=== PATIENT | female | born 1955 | race Caucasian/White ===

== ENCOUNTER 2016-10-24 19:38 | Inpatient (IN) | payer MEDICAID, OTHER ==
[~2016-10-24] VITALS: Ht 144.8 cm; Wt 51.3 kg
[~2016-10-24 19:38] MED LIST: LORA5SOL6 PO
[2016-10-24] MEDS ORDERED: KETOROLAC 30MG/ML VIAL IV NR (21:11)
[2016-10-24] MEDS ORDERED: SODIUM CHLORIDE 0.9% 1000ML BAG (SEPSIS BOLUS) IV NR (21:15)
[2016-10-24] MEDS ORDERED: LIDOCAINE HCL 1% 20ML VIAL (Pyxis) INJ INFIL NR (21:15)
[2016-10-24 21:42] LABS: CLARITY URINE CLEAR (CLEAR); COLOR URINE YELLOW (YELLOW); GLUCOSE URINE NEGATIVE (NEGATIVE); KETONES URINE NEGATIVE (NEGATIVE); LEUKOCYTE ESTERASE URINE 1+ (NEGATIVE); NITRITE URINE NEGATIVE (NEGATIVE); OCCULT BLOOD URINE NEGATIVE (NEGATIVE); PROTEIN URINE NEGATIVE (NEGATIVE); SPECIFIC GRAVITY URINE 1.018 (1.005-1.030); UROBILINOGEN URINE 0.2 E.U./dL (0.2-1.0)
[2016-10-24 22:05] LABS: BASOPHILS % 0.5 % (0.0-2.0); EOSINOPHILS % 0.3 % (0.0-5.0); HEMATOCRIT. 32.1 % (36.0-48.0); HEMOGLOBIN. 10.4 g/dL (12.0-16.0); LYMPHOCYTES % 10.4 % (20.0-50.0); MEAN CORPUSCULAR HEMOGLOBIN 26.3 pg (28.0-32.0); MEAN CORPUSCULAR VOLUME 81.2 fL (81.0-99.0); MEAN PLATELET VOLUME 8.7 fl (7.4-10.4); MONOCYTES % 3.5 % (2.0-8.0); NEUTROPHILS % 85.3 % (40.0-76.0); PLATELET 352 x1000/uL (130-400); RED BLOOD CELL COUNT 3.95 mill/uL (4.2-5.4); RED CELL DISTRIBUTION WIDTH 16.6 % (11.6-14.6)
[2016-10-24 22:09] LABS: INR 1.1; PROTHROMBIN TIME 11.1 sec (9.4-11.6)
[2016-10-24 22:14] LABS: CARBON DIOXIDE 20 mEq/L (21-32); CHLORIDE 108 mEq/L (98-107)
[2016-10-25] MEDS ORDERED: IPRATROPIUM/ALBUTEROL 0.5-3(2.5)MG/3ML NEB INH PRN (03:45)
[2016-10-25] MEDS ORDERED: GUAIFENESIN 200MG/10ML SUGAR FREE UDC PO PRN (03:45)
[2016-10-25] MEDS ORDERED: DEXTROSE 50% WATER 50ML SYRINGE IV PRN (03:45)
[2016-10-25] MEDS ORDERED: MAGNESIUM/ALUMINUM HYDROXIDE/SIMETHICONE 30ML UDC PO PRN (03:45)
[2016-10-25] MEDS ORDERED: DIPHENHYDRAMINE 50MG/ML VIAL IV PRN (03:45)
[2016-10-25] MEDS ORDERED: LORAZEPAM 2MG/ML CPJ IV PRN (03:45)
[2016-10-25] MEDS ORDERED: ONDANSETRON HCL 4MG/2ML VIAL IV PRN (03:45)
[2016-10-25] MEDS ORDERED: LEVOFLOXACIN 500MG PREMIX 100 ML IV SCH (04:29)
[2016-10-25] MEDS ORDERED: CEFTRIAXONE 1 G PREMIX 50 ML IV SCH (04:29)
[2016-10-25] MEDS: SODIUM CHLORIDE 0.9% 1,000 ML IV SCH ×3 (04:54→23:38)
[2016-10-25] MEDS ORDERED: GENTAMICIN 80MG PREMIX 100 ML IV SCH (08:00)
[2016-10-25] MEDS ORDERED: INSULIN LISPRO 100 UNITS/ML SUBCUT SCH (08:20)
[2016-10-25] MEDS: BLOOD SUGAR DIAGNOSTIC STRIP TEST SCH ×4 (08:29→21:36)
[2016-10-25] MEDS: ACETAMINOPHEN 325MG TABLET PO PRN ×3 (09:46→21:52)
[2016-10-25 09:49] VITALS: BP 132/70
[2016-10-25 12:33] VITALS: BP 132/70
[2016-10-25] MEDS ORDERED: GENTAMICIN 120MG PREMIX 100 ML IV NR (14:00)
[2016-10-25 16:20] VITALS: BP 126/51
[2016-10-25] MEDS: INSULIN LISPRO 100 UNITS/ML SUBCUT SCH ×2 (17:47→21:00)
[2016-10-25 20:00] VITALS: BP 119/56
[2016-10-25 23:57] VITALS: BP 104/60
[2016-10-26] MEDS: GENTAMICIN 80MG PREMIX 100 ML IV SCH ×2 (03:11→13:02)
[2016-10-26] MEDS: ACETAMINOPHEN 325MG TABLET PO PRN ×4 (05:14→17:06)
[2016-10-26 05:24] VITALS: BP 139/82
[2016-10-26] MEDS: CEFTRIAXONE 1 G PREMIX 50 ML IV SCH (06:16)
[2016-10-26] MEDS: SODIUM CHLORIDE 0.9% 1,000 ML IV SCH ×3 (06:16→18:32)
[2016-10-26] MEDS: BLOOD SUGAR DIAGNOSTIC STRIP TEST SCH ×4 (06:18→21:13)
[2016-10-26] MEDS: INSULIN LISPRO 100 UNITS/ML SUBCUT SCH ×4 (07:50→21:00)
[2016-10-26 08:00] VITALS: BP 136/61
[2016-10-26 11:35] VITALS: BP 100/55
[2016-10-26 15:27] VITALS: BP 111/66
[2016-10-26 20:27] VITALS: BP 128/83
[2016-10-27 00:27] VITALS: BP 135/84
[2016-10-27] MEDS: GENTAMICIN 80MG PREMIX 100 ML IV SCH (02:40)
[2016-10-27 04:25] LABS: CARBON DIOXIDE 23 mEq/L (21-32); CHLORIDE 115 mEq/L (98-107)
[2016-10-27 04:36] VITALS: BP 129/82
[2016-10-27] MEDS: ACETAMINOPHEN 325MG TABLET PO PRN (05:11)
[2016-10-27] MEDS: CEFTRIAXONE 1 G PREMIX 50 ML IV SCH (05:11)
[2016-10-27] MEDS: SODIUM CHLORIDE 0.9% 1,000 ML IV SCH (05:11)
[2016-10-27] MEDS: BLOOD SUGAR DIAGNOSTIC STRIP TEST SCH ×2 (06:06→12:33)
[2016-10-27 07:45] VITALS: BP 104/70
[2016-10-27] MEDS: INSULIN LISPRO 100 UNITS/ML SUBCUT SCH ×2 (07:50→12:34)
[2016-10-27] MEDS ORDERED: POTASSIUM CHLORIDE 20MEQ TABLET SR PO SCH (10:45)
[2016-10-27 11:02] VITALS: BP 104/70
== END 2016-10-27 13:00 | disposition home or self-care (01) | DRG 720 ==
LOC: ER 19:38 → 6WST 10-25 00:38 → EDBEDREQ 10-25 00:43 → EDBEDREQSVC 10-25 07:15 → ENRESERV 10-25 07:22
PROVIDERS: ADMIT Internal Medicine; ATTEND Internal Medicine
DX: A41.9 Sepsis, unspecified organism (principal); E43 Unspecified severe protein-calorie malnutrition; N10 Acute pyelonephritis; N39.0 Urinary tract infection, site not specified; E11.9 Type 2 diabetes mellitus without complications; E86.0 Dehydration; K44.9 Diaphragmatic hernia without obstruction or gangrene; K57.90 Diverticulosis of intestine, part unspecified, without perforation or abscess without bleeding; Z72.0 Tobacco use; Z83.3 Family history of diabetes mellitus; Z86.718 Personal history of other venous thrombosis and embolism; Z86.73 Personal history of transient ischemic attack (TIA), and cerebral infarction without residual deficits; Z79.899 Other long term (current) drug therapy; E83.51 Hypocalcemia
CPT/HCPCS: 20610; 36415; 71010; 73562; 74176; 80048; 80053; 80170; 81001; 82962; 83605; 85025; 85610; 87040; 87086; 93005; 96361; 96365; 96375; 97162; 97166; 99285; J0696; J1580; J1885; J1956; J3490; J7030; J7040

== ENCOUNTER 2020-06-24 18:39 | Inpatient (IN) | payer MEDICAID ==
[~2020-06-24] VITALS: Ht 152.4 cm; Wt 64.0 kg
[2020-06-24 22:12] LABS: BASOPHILS % 0.3 % (0.0-2.0); EOSINOPHILS % 4.3 % (0.0-5.0); HEMOGLOBIN. 11.7 g/dL (12.0-16.0); LYMPHOCYTES % 43.6 % (20.0-50.0); MEAN CORPUSCULAR HEMOGLOBIN 27.2 pg (28.0-32.0); MEAN CORPUSCULAR VOLUME 83.4 fL (81.0-99.0); MEAN PLATELET VOLUME 8.5 fl (7.4-10.4); MONOCYTES % 7.6 % (2.0-8.0); NEUTROPHILS % 44.2 % (40.0-76.0); PLATELET 477 x1000/uL (130-400); RED BLOOD CELL COUNT 4.32 mill/uL (4.2-5.4); RED CELL DISTRIBUTION WIDTH 17.2 % (11.6-14.6)
[2020-06-24 22:16] LABS: CHLORIDE 105 mEq/L (98-107)
[2020-06-24 22:20] LABS: ETHANOL BLOOD < 10 mg/dL
[2020-06-24] MEDS ORDERED: SODIUM CHLORIDE 0.9% 1,000 ML IV ONE (22:45)
[2020-06-24 23:09] LABS: CLARITY URINE CLEAR (CLEAR); COLOR URINE YELLOW (YELLOW); KETONES URINE NEGATIVE (NEGATIVE); LEUKOCYTE ESTERASE URINE 2+ (NEGATIVE); NITRITE URINE NEGATIVE (NEGATIVE); OCCULT BLOOD URINE NEGATIVE (NEGATIVE); PROTEIN URINE NEGATIVE (NEGATIVE); SPECIFIC GRAVITY URINE 1.016 (1.005-1.030)
[2020-06-24 23:28] LABS: *AMPHETAMINES SCREEN URINE NEGATIVE (NEGATIVE); *BARBITURATES SCREEN URINE NEGATIVE (NEGATIVE); *BENZODIAZEPINES SCREEN URINE NEGATIVE (NEGATIVE); *COCAINE SCREEN URINE NEGATIVE (NEGATIVE); METHADONE URINE SCREEN NEGATIVE (NEGATIVE); OPIATES URINE SCREEN NEGATIVE (NEGATIVE); PHENCYCLIDINE URINE SCREEN NEGATIVE (NEGATIVE)
[2020-06-24 23:29] LABS: CANNABINOID URINE SCREEN NEGATIVE (NEGATIVE)
[2020-06-24] MEDS ORDERED: CEFTRIAXONE 1 G PREMIX 50 ML IV ONE (23:30)
[2020-06-25] MEDS ORDERED: SODIUM CHLORIDE 0.9% 1,000 ML IV ONE
[2020-06-25 04:23] VITALS: BP 118/63
[2020-06-25 04:40] VITALS: BP 118/63
[2020-06-25] MEDS ORDERED: IOHEXOL-300 100 ML BOTTLE ONE (05:39)
[2020-06-25] MEDS ORDERED: ACETAMINOPHEN 325MG TABLET PO PRN ×2 (06:00)
[2020-06-25] MEDS ORDERED: IPRATROPIUM/ALBUTEROL 0.5-3(2.5)MG/3ML NEB HHN PRN (06:00)
[2020-06-25] MEDS ORDERED: ONDANSETRON HCL 4MG/2ML INJ IV PRN (06:00)
[2020-06-25] MEDS ORDERED: MORPHINE SULFATE 2 MG/ML CPJ (NOT FOR IM USE) IV PRN (06:00)
[2020-06-25] MEDS ORDERED: CLONIDINE 0.1MG TABLET PO PRN (06:00)
[2020-06-25] MEDS ORDERED: MAGNESIUM/ALUMINUM HYDROXIDE/SIMETHICONE 30ML UDC PO PRN (06:00)
[2020-06-25] MEDS ORDERED: HYDROCODONE/ACETAMINOPHEN 5/325MG TABLET PO PRN (06:00)
[2020-06-25] MEDS: SODIUM CHLORIDE 0.9% 1,000 ML IV SCH ×2 (06:00→17:38)
[2020-06-25] MEDS ORDERED: LORAZEPAM 0.5MG TABLET PO PRN (06:00)
[2020-06-25] MEDS ORDERED: DOCUSATE SODIUM 100MG CAPSULE PO PRN (06:00)
[2020-06-25] MEDS ORDERED: GUAIFENESIN 200MG/10ML SUGAR FREE UDC PO PRN (06:00)
[2020-06-25] MEDS ORDERED: DIPHENHYDRAMINE 50MG/ML VIAL IV PRN (06:00)
[2020-06-25] MEDS ORDERED: MVI, ADULT NO.1 10 ML, FOLIC ACID 1 MG, THIAMINE HCL 100 MG in SODIUM CHLORIDE 0.9% 1,0... IV SCH (06:00)
[2020-06-25] MEDS ORDERED: DEXTROSE 50% WATER 50ML SYRINGE IV PRN (06:30)
[2020-06-25] MEDS ORDERED: BLOOD SUGAR DIAGNOSTIC STRIP TEST SCH (07:20)
[2020-06-25] MEDS ORDERED: INSULIN LISPRO 100 UNITS/ML SUBCUT SCH (07:50)
[2020-06-25 08:00] VITALS: BP 105/50
[2020-06-25] MEDS: ENOXAPARIN 40MG/0.4ML SYR SUBCUT SCH (08:42)
[2020-06-25] MEDS: BLOOD SUGAR DIAGNOSTIC STRIP TEST SCH ×2 (08:43→17:28)
[2020-06-25] MEDS: CEPHALEXIN 250MG CAPSULE PO SCH ×3 (08:43→17:39)
[2020-06-25 11:07] LABS: BASOPHILS % 0.8 % (0.0-2.0); EOSINOPHILS % 4.7 % (0.0-5.0); HEMATOCRIT. 31.8 % (36.0-48.0); HEMOGLOBIN. 10.4 g/dL (12.0-16.0); LYMPHOCYTES % 44.5 % (20.0-50.0); MEAN CORPUSCULAR HEMOGLOBIN 27.1 pg (28.0-32.0); MEAN CORPUSCULAR VOLUME 82.7 fL (81.0-99.0); MEAN PLATELET VOLUME 8.5 fl (7.4-10.4); MONOCYTES % 8.2 % (2.0-8.0); NEUTROPHILS % 41.8 % (40.0-76.0); PLATELET 432 x1000/uL (130-400); RED BLOOD CELL COUNT 3.84 mill/uL (4.2-5.4); RED CELL DISTRIBUTION WIDTH 16.7 % (11.6-14.6)
[2020-06-25 11:23] LABS: CHLORIDE 113 mEq/L (98-107)
[2020-06-25 11:33] LABS: LDL CHOLESTEROL 122 mg/dL (5-100)
[2020-06-25 11:34] LABS: HDL CHOLESTEROL 24 mg/dL (40-59)
[2020-06-25 12:00] VITALS: BP 116/59
[2020-06-25 16:00] VITALS: BP 108/62
[2020-06-25 20:00] VITALS: BP 129/69
[2020-06-26] VITALS: BP 104/18
[2020-06-26] MEDS: SODIUM CHLORIDE 0.9% 1,000 ML IV SCH ×3 (02:00→22:00)
[2020-06-26 04:00] VITALS: BP 110/65
[2020-06-26 08:00] VITALS: BP 84/18
[2020-06-26 08:58] LABS: BASOPHILS % 0.7 % (0.0-2.0); EOSINOPHILS % 4.5 % (0.0-5.0); HEMATOCRIT. 28.8 % (36.0-48.0); HEMOGLOBIN. 9.5 g/dL (12.0-16.0); LYMPHOCYTES % 41.1 % (20.0-50.0); MEAN CORPUSCULAR HEMOGLOBIN 27.4 pg (28.0-32.0); MEAN CORPUSCULAR VOLUME 83.3 fL (81.0-99.0); MEAN PLATELET VOLUME 8.7 fl (7.4-10.4); MONOCYTES % 9.4 % (2.0-8.0); NEUTROPHILS % 44.3 % (40.0-76.0); PLATELET 345 x1000/uL (130-400); RED BLOOD CELL COUNT 3.46 mill/uL (4.2-5.4); RED CELL DISTRIBUTION WIDTH 16.9 % (11.6-14.6)
[2020-06-26 08:59] LABS: CHLORIDE 111 mEq/L (98-107)
[2020-06-26] MEDS: BLOOD SUGAR DIAGNOSTIC STRIP TEST SCH ×2 (09:00→17:00)
[2020-06-26] MEDS: CEPHALEXIN 250MG CAPSULE PO SCH ×3 (10:11→18:36)
[2020-06-26] MEDS: ENOXAPARIN 40MG/0.4ML SYR SUBCUT SCH (10:14)
[2020-06-26] MEDS ORDERED: GADOTERATE MEGLUMINE 5 MMOL/10 ML VIAL IV ONE (11:29)
[2020-06-26 12:00] VITALS: BP 116/65
[2020-06-26 16:00] VITALS: BP 110/75
[2020-06-26 20:00] VITALS: BP 103/53
[2020-06-27] VITALS: BP 132/72
[2020-06-27 04:00] VITALS: BP 104/56
[2020-06-27 07:19] LABS: BASOPHILS % 0.6 % (0.0-2.0); EOSINOPHILS % 5.8 % (0.0-5.0); HEMATOCRIT. 31.4 % (36.0-48.0); HEMOGLOBIN. 10.5 g/dL (12.0-16.0); LYMPHOCYTES % 39.1 % (20.0-50.0); MEAN CORPUSCULAR VOLUME 84.2 fL (81.0-99.0); MEAN PLATELET VOLUME 8.5 fl (7.4-10.4); MONOCYTES % 9.4 % (2.0-8.0); NEUTROPHILS % 45.1 % (40.0-76.0); PLATELET 362 x1000/uL (130-400); RED BLOOD CELL COUNT 3.74 mill/uL (4.2-5.4); RED CELL DISTRIBUTION WIDTH 16.5 % (11.6-14.6)
[2020-06-27 07:30] LABS: CHLORIDE 109 mEq/L (98-107)
[2020-06-27] MEDS: CEPHALEXIN 250MG CAPSULE PO SCH ×3 (08:19→17:18)
[2020-06-27] MEDS: ENOXAPARIN 40MG/0.4ML SYR SUBCUT SCH (08:20)
[2020-06-27 08:46] VITALS: BP 92/44
[2020-06-27] MEDS: SODIUM CHLORIDE 0.9% 1,000 ML IV SCH ×3 (11:16→23:10)
[2020-06-27 12:30] VITALS: BP 102/65
[2020-06-27 16:00] VITALS: BP 100/59
[2020-06-27] MEDS ORDERED: BLOOD SUGAR DIAGNOSTIC STRIP TEST SCH (18:00)
[2020-06-27 20:00] VITALS: BP 98/50
[2020-06-27] MEDS ORDERED: ATORVASTATIN CALCIUM 40MG TABLET PO SCH (21:00)
[2020-06-28] VITALS: BP 111/59
[2020-06-28 04:00] VITALS: BP 110/72
[2020-06-28 07:49] LABS: BASOPHILS % 0.9 % (0.0-2.0); EOSINOPHILS % 5.9 % (0.0-5.0); HEMATOCRIT. 30.5 % (36.0-48.0); HEMOGLOBIN. 9.9 g/dL (12.0-16.0); LYMPHOCYTES % 39.9 % (20.0-50.0); MEAN CORPUSCULAR HEMOGLOBIN 27.4 pg (28.0-32.0); MEAN PLATELET VOLUME 8.4 fl (7.4-10.4); MONOCYTES % 9.5 % (2.0-8.0); NEUTROPHILS % 43.8 % (40.0-76.0); PLATELET 392 x1000/uL (130-400); RED BLOOD CELL COUNT 3.63 mill/uL (4.2-5.4); RED CELL DISTRIBUTION WIDTH 17.1 % (11.6-14.6)
[2020-06-28 07:58] LABS: CHLORIDE 111 mEq/L (98-107)
[2020-06-28] MEDS: CEPHALEXIN 250MG CAPSULE PO SCH ×2 (08:15→12:18)
[2020-06-28] MEDS: ENOXAPARIN 40MG/0.4ML SYR SUBCUT SCH (08:16)
[2020-06-28 08:17] VITALS: BP 95/61
[2020-06-28] MEDS ORDERED: MECL-159 MT (11:10)
[2020-06-28] MEDS ORDERED: POTASSIUM CHLORIDE 20MEQ TABLET SR PO NR (11:30)
[2020-06-28 12:10] VITALS: BP 105/48
[2020-06-28] MEDS: SODIUM CHLORIDE 0.9% 1,000 ML IV SCH (14:00)
[2020-06-28 16:00] VITALS: BP 112/62
== END 2020-06-28 16:57 | disposition home health service (06) | DRG 58 ==
LOC: ER 18:39 → 6WST 23:36 → EDBEDREQ 23:41 → EDBEDREQTM 23:41 → ENRESERV 06-25 02:21
PROVIDERS: ADMIT Family Medicine Adult Medicine; ATTEND Family Medicine Adult Medicine
DX: G93.0 Cerebral cysts (principal); I95.9 Hypotension, unspecified; E23.6 Other disorders of pituitary gland; I42.9 Cardiomyopathy, unspecified; I11.0 Hypertensive heart disease with heart failure; I50.9 Heart failure, unspecified; D64.9 Anemia, unspecified; E11.9 Type 2 diabetes mellitus without complications; E86.0 Dehydration; K80.20 Calculus of gallbladder without cholecystitis without obstruction; E78.00 Pure hypercholesterolemia, unspecified; J44.9 Chronic obstructive pulmonary disease, unspecified; E78.5 Hyperlipidemia, unspecified; K44.9 Diaphragmatic hernia without obstruction or gangrene; K57.30 Diverticulosis of large intestine without perforation or abscess without bleeding; K76.0 Fatty (change of) liver, not elsewhere classified; I25.10 Atherosclerotic heart disease of native coronary artery without angina pectoris; K21.9 Gastro-esophageal reflux disease without esophagitis; Z86.73 Personal history of transient ischemic attack (TIA), and cerebral infarction without residual deficits; Z86.718 Personal history of other venous thrombosis and embolism; Z86.69 Personal history of other diseases of the nervous system and sense organs; Z79.899 Other long term (current) drug therapy; N39.0 Urinary tract infection, site not specified
CPT/HCPCS: 36415; 70551; 70553; 71045; 74177; 80048; 80053; 80061; 80305; 80320; 81003; 82962; 83605; 83735; 83880; 84145; 84443; 84484; 85025; 93005; 93306; 97162; 99291; A9577; J0696; J1650; J2405; J3411; J3490; J7030; Q9967; G0480

== ENCOUNTER 2020-07-19 12:19 | Emergency (ER) | payer MEDICAID ==
[~2020-07-19] VITALS: Ht 149.9 cm; Wt 57.0 kg
[~2020-07-19 12:19] MED LIST changes: -LORA5SOL6 PO; +MECL-159 MT
[2020-07-19] MEDS ORDERED: ONDANSETRON HCL 4MG/2ML INJ IV STA (12:50)
[2020-07-19] MEDS ORDERED: SODIUM CHLORIDE 0.9% 1,000 ML IV ONE (13:00)
[2020-07-19 13:21] LABS: BASOPHILS % 1.2 % (0.0-2.0); EOSINOPHILS % 2.4 % (0.0-5.0); HEMOGLOBIN. 11.6 g/dL (12.0-16.0); LYMPHOCYTES % 43.9 % (20.0-50.0); MEAN CORPUSCULAR HEMOGLOBIN 27.4 pg (28.0-32.0); MEAN CORPUSCULAR VOLUME 82.6 fL (81.0-99.0); MEAN PLATELET VOLUME 9.2 fl (7.4-10.4); MONOCYTES % 11.6 % (2.0-8.0); NEUTROPHILS % 40.9 % (40.0-76.0); PLATELET 434 x1000/uL (130-400); RED BLOOD CELL COUNT 4.24 mill/uL (4.2-5.4)
[2020-07-19 13:29] LABS: CHLORIDE 103 mEq/L (98-107)
[2020-07-19 16:00] VITALS: BP 111/61
== END 2020-07-19 16:20 | disposition home or self-care (01) ==
LOC: ER 12:19
DX: R93.0 Abnormal findings on diagnostic imaging of skull and head, not elsewhere classified (principal); E11.9 Type 2 diabetes mellitus without complications; R11.2 Nausea with vomiting, unspecified; Z86.73 Personal history of transient ischemic attack (TIA), and cerebral infarction without residual deficits
CPT/HCPCS: 36415; 70450; 71045; 80053; 84484; 85025; 93005; 96361; 96374; 99285; J2405; J7030; Z7610